=== PATIENT | male | born 1985 | race Caucasian/White ===

== ENCOUNTER 2016-11-04 17:13 | Emergency (ER) | payer OTHER ==
--- NOTE | 2016-11-06 13:20 | ER ---
ADMIT: 11/04/2016 RM/LOC: ER [facility] MR#: [id number] [address] [id number] [address] [place] [address] Emergency Room Report SEX: M AGE: 31 : 1985 DATE: 11/04/2016 CHIEF COMPLAINT: Injury to right middle finger. HISTORY OF PRESENT ILLNESS: A pleasant 31-year-old white male, who presents about 4-6 hours after he sustained a laceration to his right middle finger at work. He states he was using an angle custom grinder when it slipped and caught his right middle digit. Associated with some redness and swelling. No other injuries. Allergy to penicillin. COURSE IN THE EMERGENCY ROOM: The patient was seen and examined. He is afebrile and nontoxic. He does have a 0.5 cm laceration to the lateral side of his middle finger. There is some significant swelling about the 3rd digit and erythema. The cap refill is brisk and intact. Sensation is intact distally from the laceration. I did clean this thoroughly with Ultradex and dressing was applied. He was also given his first dose of Bactrim in the department tonight. IMPRESSION: Laceration to right finger. DISPOSITION: The patient will be discharged on Bactrim DS 1 tab p.o. b.i.d. for 7 days. He is to follow up with Dr. Plasencia in 1 week. Wash daily with warm soapy water. Monitor for any worsening signs or symptoms of infection. Follow up sooner if needed. Keep it covered at work. Complete the entire course of antibiotics. Questions were sought and answered to the best of my ability and to the patient's satisfaction. Discharged in stable condition. KATHERINE Heck / Doni Hathaway MD / [facility] JOB #: [id number] CC: Doni Hathaway MD, Attending Physician Marcos Plasencia MD, Family Physician
== END 2016-11-04 18:44 | disposition home or self-care (01) ==
LOC: ER 17:13
DX: S61.212A Laceration without foreign body of right middle finger without damage to nail, initial encounter (principal); Z23 Encounter for immunization; W26.9XXA Contact with unspecified sharp object(s), initial encounter; Y92.69 Other specified industrial and construction area as the place of occurrence of the external cause; Y99.0 Civilian activity done for income or pay